=== PATIENT | female | born 1985 | race Caucasian/White ===

== ENCOUNTER 2020-02-28 20:34 | Emergency (ER) | payer SELFPAY ==
[2020-02-28] MEDS ORDERED: Lidocaine 1% w/Epinephrine 1:100K 20 ML VIAL ONE (21:01)
== END 2020-02-28 21:33 | disposition home or self-care (01) ==
LOC: BURERS 20:34
DX: L02.413 Cutaneous abscess of right upper limb (principal); F41.9 Anxiety disorder, unspecified; F32.9 Major depressive disorder, single episode, unspecified; J45.909 Unspecified asthma, uncomplicated; Z79.899 Other long term (current) drug therapy
CPT/HCPCS: 10060

== ENCOUNTER 2020-09-03 15:57 | Emergency (ER) | payer SELFPAY ==
[2020-09-03] MEDS ORDERED: Acetaminophen 500 MG TAB ONE (16:31)
--- NOTE | 2020-09-03 17:58 | RAD ---
RIGHT ELBOW FOUR VIEWS: 09/03/20 No fracture or joint effusion was seen. All bones appear intact. IMPRESSION: No acute finding. POS: HOME
== END 2020-09-03 17:18 | disposition home or self-care (01) ==
LOC: BURERS 15:57
DX: S50.01XA Contusion of right elbow, initial encounter (principal); S43.401A Unspecified sprain of right shoulder joint, initial encounter; W00.0XXA Fall on same level due to ice and snow, initial encounter